=== PATIENT | female | born 1990 | race Caucasian/White ===

== ENCOUNTER 2016-03-28 20:17 | Observation (INO) ==
--- NOTE | 2016-04-03 15:48 | OB Labor Progress Note ---
Date of Encounter: 03/28/16 Time of Encounter: 21:10 Labor Progress Note - Plan Plan: Patient is a 25 y/o who came in to L and D with complaints of bleeding. SSE showed no blood in the vault, cervix was closed. FHT reactive, patient discharged.
== END 2016-03-28 21:20 | disposition home or self-care (01) ==
LOC: 1NENULAB
PROVIDERS: ADMIT Student in an Organized Health Care Education/Training Program; ATTEND Student in an Organized Health Care Education/Training Program

== ENCOUNTER 2016-04-15 08:00 | Inpatient (IN) ==
[2016-04-15] MEDS ORDERED: Metoclopramide 10 MG/2 ML VIAL IVP PRN (08:24)
[2016-04-15] MEDS ORDERED: Ondansetron 4 MG/2 ML VIAL IVP PRN (08:24)
[2016-04-15] MEDS ORDERED: Naloxone 0.4 MG/ML INJ IVP PRN (08:24)
[2016-04-15] MEDS ORDERED: Famotidine 20 MG/2 ML VIAL IVP PRN (08:24)
--- NOTE | 2016-04-15 09:42 | OB/GYN History & Physical ---
Date of Encounter: 04/15/16 Time of Encounter: 09:30 Assessment and Plan (1) and not yet delivered in third trimester Current visit: Yes Status: Acute (2) 39 weeks gestation of Current visit: Yes Status: Acute (3) Polycystic kidney disease of fetus affecting management of mother in [place] , antepartum Current visit: Yes Status: Acute (4) Hydronephrosis of fetus in [place] , antepartum Current visit: Yes Status: Acute (5) Elective induction of labor planned Current visit: Yes Status: Acute Will induce with Shrestha catheter and Pitocin and plan is to anticipate vaginal delivery History of Present Illness HPI: Ms. Mckee is a 25 year old female 3 para 1011 at 39-0/7 weeks who presented to labor and delivery for induction of labor secondary term with history of polycystic kidneys on the fetus with moderate hydronephrosis. Patient has been followed closely due to the kidney abnormality on the fetus and was advised when she got to term should be delivered. Patient did not have the most favorable cervix recommended we do a Shrestha catheter with Cytotec. Patient states she started katie in the middle of the night starting get more uncomfortable. Patient is katie every 3-5 minutes irregularly since Cytotec would not be a good option. Recommended Augmentiation with Pitocin. She denies any vaginal discharge itching or burning and is having no bladder issues at this time. She is wanting a tubal ligation she did sign tubal papers the risks and benefits of the tubal ligation was going to patient with failure rate of 5-8 per thousand with increased risk of ectopic if was to occur. Past Med Surg Social Fam HX - Past Medical History Source: patient, old records reviewed Medical history: migraine Psychiatric history: depression - Past Surgical History Surgical History: no surgical history - Social History Smoking Status: Former smoker Smokeless Tobacco Status: No Alcohol use: none Drug use: none Occupational status: employed Current living situation: Home - Independent Recent Out of Country Travel Within the Last 8 Weeks: No Exposure or Possible Exposure to Illness During Travel: No - Family History Father Adopted: No Living Status: Still Living Hx Family Cardiac Disorders: Yes (valve issue) Hx Family Respiratory Disorders: No Hx Family Cancer: No Hx Family GI Disorders: No Hx Family Endocrine Disorder: No Hx Family Neuromuscular Disorders: No Hx Family Neurologic Disorders: No Hx Family HEENT Disorders: No Hx Family Autoimmune Disorders: No Hx Family Medical Disorders: Yes (blood clots) Obstetrical History - Pregnancies : 3 Para: 1 Term: 0 : 1 Ab's: 1 Livin Medications and Allergies Pnv95/Ferrous Fumarate/FA [ Caplet] 1 tab PO DAILY 11/01/15 [History] Pyridoxine HCl [Vitamin B-6] 25 mg PO DAILY 11/01/15 [History] Famotidine [Pepcid] 1 tab PO PRN PRN 02/17/16 [History] Allergies hydrocodone [From Vicodin] Allergy (Verified 04/15/16 08:37) Hives Hydromorphone [From Dilaudid] Allergy (Verified 04/15/16 08:37) Hives nalbuphine [From Nubain] Allergy (Verified 04/15/16 08:37) Hives Oxycodone [From Percocet] Allergy (Verified 04/15/16 08:37) Hives Review of System OB All systems PM: reviewed and no additional remarkable complaints except as stated Exam - Constitutional Constitutional: well developed, well nourished, average body habitus, mild distress - HEENT HEENT: PERRL, Mucus Membranes Moist - Neck Neck exam: full ROM - Lungs Respiratory exam: CTAB - Cardiovascular Cardiovascular exam: RRR - Abdomen Abdomen: Present: bowel sounds normal, gravid - Vagina Vagina: Present: discharge - Cervix Dilation: 1 Effacement: 80 Station: -3 (Shrestha catheter inserted with 30 mL balloon inflated) - Comments Comments: heart tones 140s reactive contractions every 3-5 minutes Results All other labs normal. - VTE Reasons for not Prescribing Prophylaxis: Treatment not Indicated - Low risk for VTE
[2016-04-15] MEDS ORDERED: Oxytocin 20 units/ LR 1000 mL 20 UNIT/1,000 ML BAG IVC SCH (09:45)
[2016-04-15 09:46] LABS: Basophils # 0.1 K/mcL (0.0-0.2); Basophils % 0.3 %; Eosinophils # 0.2 K/mcL (0.0-0.6); Eosinophils % 1.3 %; Hematocrit 34.4 % (35.3-44.9); Hemoglobin 11.3 g/dL (11.5-15.4); Immature Granulocytes % 0.7 % (0-4); Lymphocytes # 2.7 K/mcL (0.6-4.6); Mean Corpuscular HGB Conc 32.8 g/dL (31.6-35.5); Mean Corpuscular Hemoglobin 26.5 pg (28.0-33.3); Mean Corpuscular Volume 80.6 fL (83.0-100.0); Monocytes # 1.5 K/mcL (0.0-1.3); Monocytes % 8.9 %; Neutrophils # 12.1 K/mcL (1.6-8.9); Platelet Count 342 K/mcL (140-400); Red Blood Count 4.27 M/mcL (3.82-4.97); Red Cell Distribution Width 14.3 % (11.5-14.5); Segmented Neutrophils % 72.8 %
[2016-04-15] MEDS: Ringers Solution, Lactated 1,000 ML IVC SCH ×2 (10:24→17:40)
[2016-04-15] MEDS: *HR* Meperidine 50 MG/ML SYRINGE IVP PRN ×2 (11:36→15:32)
[2016-04-15] MEDS ORDERED: Acetaminophen 325 MG TABLET PO PRN ×2 (16:05→19:27)
[2016-04-15] MEDS ORDERED: *HR* Promethazine 25 MG/ML VIAL IVP PRN (16:06)
--- NOTE | 2016-04-15 16:18 | OB Labor Progress Note ---
Date of Encounter: 04/15/16 Time of Encounter: 16:00 Labor Progress Note - Subjective Subjective: Shrestha catheter finally out patient is feeling contractions uncomfortable unable to get an epidural due to reaction she had 2 previous epidural is getting Demerol because allergic to Nubain. Did inform her with inability limited on pain management due to her reaction to narcotics and her situation with the epidural. - Cervix Cervix: 4/80/-2 AROM large amount of fluid noted clear - Heart Tones Heart Tones: heart tones 140s reactive - Demarest Demarest: Contractions every 2 minutes - Plan Plan: We will continue current care we will give her some promethazine for her nausea vomiting and we will have to use Demerol for pain control.
[2016-04-15] MEDS ORDERED: Lidocaine 1% 20 ML MDV ONE (18:44)
[2016-04-15] MEDS ORDERED: Famotidine 20 MG TABLET PO PRN (19:27)
[2016-04-15] MEDS ORDERED: Oxytocin 20 units/ LR 1000 mL 20 UNIT/1,000 ML BAG IVC ONE (19:27)
[2016-04-15] MEDS ORDERED: Measles/Mumps/Rubella Vacc 0.5 ML VIAL SQ PRN (19:27)
[2016-04-15] MEDS ORDERED: Oxytocin 20 units/ LR 1000 mL 20 UNIT/1,000 ML BAG IV SCH (19:30)
--- NOTE | 2016-04-15 19:31 | OB/GYN Procedure Note ---
Delivery - Delivery Date: 04/15/16 Provider: Damon Rosa Intrapartum events: none Delivery induction: AROM, oxytocin, thomas Delivery monitor: external FHT, external uterine Anesthesia: local - (s) A Delivery Date: 04/15/16 Infant Delivery Time: 18:37 Presentation: vertex Position: OA Route of delivery: Gender: Female Viability: Viable Pounds: 6 Ounces: 14 Weight Gram: 3.11 kg at 1 minute: 7 at 5 mins: 9 Shoulder Dystocia: not encountered Specimens collected: cord blood Placenta: spontaneous Cord: nuchal cord, 3 umbilical vessels, delivered through nuchal - Repair Episiotomy: none Laceration Description: Periurethral (bilateral), Labial (right) - Complications Delivery complications: none Delivery comments: Patient is a 25-year-old 2 para 0101 at 39-0/7 weeks who presented to labor and delivery for induction of labor section at term with history of polyhydramnios and poly-kidney disease with the fetus on the right side. The patient was advised by maternal medicine once the amniotic fluid index got close to 28 she need to be delivered patient ultrasound last week which was 27.5 and she was scheduled for induction. Patient reports to labor and delivery where she was already noted to be katie a Thomas catheter was placed and she was augmented with Pitocin. It did take approximately 4-5 hours before the Thomas finally came out at this point were able to artificially ruptured with large amounts of clear fluid. Patient progressed rapidly from this point. Patient could not get an epidural due to a potential reaction she had last time with 1 and she was unblocked. Within an hour patient went from 6 cm complete first one time delivering a viable female in occiput anterior presentation at 1837. There was a nuchal cord 1 around the body infant was delivered through this. Apgars were 7 at one minutes , 9 at 5 minutes, weighed 6 lbs. 14 oz. Placenta was then delivered spontaneously with three-vessel cord. Inspector Poising that Shelley, anesthesia local, estimated blood loss 200 mL. Patient had bilateral periurethral lacerations and a right labial laceration repaired with 4-0 Vicryl usual fashion. Cervix and vagina was visualized and intact. She will be observed throughout before being taken floor. Patient had originally sign tubal papers to have a tubal ligation if she was to have a section she will not follow through states has more get a vasectomy. - Disposition Mom disposition: stable in LDR [place] disposition: stable in LDR
[2016-04-15] MEDS: Ibuprofen 600 MG TABLET PO PRN (19:41)
[2016-04-16] MEDS: Ibuprofen 600 MG TABLET PO PRN ×3 (03:40→18:40)
[2016-04-16 04:55] LABS: Basophils % 0.2 %; Eosinophils # 0.1 K/mcL (0.0-0.6); Eosinophils % 0.3 %; Hematocrit 31.4 % (35.3-44.9); Immature Granulocytes % 0.7 % (0-4); Lymphocytes # 2.6 K/mcL (0.6-4.6); Lymphocytes % 11.1 %; Mean Corpuscular HGB Conc 31.8 g/dL (31.6-35.5); Mean Corpuscular Hemoglobin 26.1 pg (28.0-33.3); Mean Platelet Volume 9.4 fL (9.4-12.4); Monocytes # 2.3 K/mcL (0.0-1.3); Monocytes % 9.6 %; Neutrophils # 18.3 K/mcL (1.6-8.9); Platelet Count 324 K/mcL (140-400); Red Blood Count 3.83 M/mcL (3.82-4.97); Red Cell Distribution Width 14.2 % (11.5-14.5); Segmented Neutrophils % 78.1 %
--- NOTE | 2016-04-16 08:22 | Discharge Summary ---
Date of Encounter: 04/16/16 Time of Encounter: 08:20 - Discharge Diagnosis (1) 39 weeks gestation of Priority: Primary Status: Resolved (2) Elective induction of labor planned Priority: Secondary Status: Resolved - Discharge Medications Home Medications: Pnv95/Ferrous Fumarate/FA [ Caplet] 1 tab PO DAILY 11/01/15 [History] Pyridoxine HCl [Vitamin B-6] 25 mg PO DAILY 11/01/15 [History] Famotidine [Pepcid] 1 tab PO PRN PRN 02/17/16 [History] Allergies/Adverse Reactions: Allergies hydrocodone [From Vicodin] Allergy (Verified 04/15/16 08:37) Hives Hydromorphone [From Dilaudid] Allergy (Verified 04/15/16 08:37) Hives nalbuphine [From Nubain] Allergy (Verified 04/15/16 08:37) Hives Oxycodone [From Percocet] Allergy (Verified 04/15/16 08:37) Hives Data Procedures and tests throughout hospitalization: Laboratory Tests 04/15/16 04/16/16 09:10 03:55 WBC 16.7 H 23.4 H RBC 4.27 3.83 Hgb 11.3 L 10.0 L Hct 34.4 L 31.4 L MCV 80.6 L 82.0 L MCH 26.5 L 26.1 L MCHC 32.8 31.8 RDW 14.3 14.2 Plt Count 342 324 MPV 9.0 L 9.4 Immature Gran % 0.7 0.7 Seg Neutrophils % 72.8 78.1 Lymphocytes % 16.0 11.1 Monocytes % 8.9 9.6 Eosinophils % 1.3 0.3 Basophils % 0.3 0.2 Neutrophils # 12.1 H 18.3 H Lymphocytes # 2.7 2.6 Monocytes # 1.5 H 2.3 H Eosinophils # 0.2 0.1 Basophils # 0.1 0.0 Labs on day of discharge: Labs from last 24 hours 04/16/16 04/15/16 03:55 09:10 WBC 23.4 H 16.7 H RBC 3.83 4.27 Hgb 10.0 L 11.3 L Hct 31.4 L 34.4 L MCV 82.0 L 80.6 L MCH 26.1 L 26.5 L MCHC 31.8 32.8 RDW 14.2 14.3 Plt Count 324 342 MPV 9.4 9.0 L Immature Gran % 0.7 0.7 Seg Neutrophils % 78.1 72.8 Lymphocytes % 11.1 16.0 Monocytes % 9.6 8.9 Eosinophils % 0.3 1.3 Basophils % 0.2 0.3 Neutrophils # 18.3 H 12.1 H Lymphocytes # 2.6 2.7 Monocytes # 2.3 H 1.5 H Eosinophils # 0.1 0.2 Basophils # 0.0 0.1 Date of admission: 04/15/16 08:15 Primary care physician: Linda Joyner MD Consults: 04/15/16 19:27 Consult to [employer] Stri[employer] Operator [CONS] Routine Comment: Vaginal delivery, consult needed - Patient Status Disposition: Home, Self-Care Condition: Good Functional capacity at discharge: independent ambulation Overall status at discharge: patient is progressing back to baseline - Discharge Instructions Follow Up With: Linda Joyner MD [Primary Care Provider] - - Diet and Activity Activity: increase activity as tolerated Diet: advance to your usual diet Hospital Course Reason for admission: induction of labor Delivery: Episiotomy: none Laceration: other (bilateral periurethral) Other procedures: none complications: none Discharge diagnosis: IUP at term delivered [place] baby: female Time Attestation: Total time spent providing and/or coordinating discharge services: Time Spent: Less than 30 minutes Exam - Constitutional Vitals: Temp Pulse Resp BP Pulse Ox 98.5 F 91 16 105/65 97 04/16/16 08:11 04/16/16 08:11 04/16/16 08:11 04/16/16 08:11 04/16/16 03:30 General appearance IM: cooperative, A&O X 3, pleasant, no acute distress, answers questions appropriately - Respiratory Respiratory exam: Present: CTAB - Cardiovascular Cardiovascular exam IM: Present: RRR, +S1, +S2 - GI/Abdominal GI/Abdominal exam IM: normal bowel sounds, soft, no peritoneal signs - Rectal Rectal exam: deferred - Uterine Tone: Firm Uterus Position: 1 Finger Below Umbilicus - Extremities Exam Extremities exam IM: Present: normal inspection, warm. Absent: tenderness - Neurological Exam Neurological exam: alert, CN II-XII intact, oriented X3, no focal deficits - Attending Attestation Marty Noriega MD, FACOG
[2016-04-16] MEDS: *HR* HYDROcodone/Acet 5/325 mg TABLET PO PRN ×2 (08:26→17:08)
[2016-04-16] MEDS ORDERED: Prenatal Vit/FA 1 EACH TABLET PO SCH ×2 (09:00)
[2016-04-16] MEDS ORDERED: Pyridoxine (B-6) 50 MG TABLET PO SCH (09:00)
[2016-04-16 16:17] VITALS: BP 125/75
[2016-04-16] MEDS ORDERED: Lanolin 7 G OINT...G. TP PRN (17:11)
== END 2016-04-16 19:18 | disposition home or self-care (01) | DRG 560 ==
LOC: 1NENULAB 08:15 → 1NENUOBS 21:26
PROVIDERS: ADMIT Obstetrics & Gynecology; ATTEND Obstetrics & Gynecology

== ENCOUNTER → 2019-09-01 19:29 | Observation (INO) | END | disposition home or self-care (01) | LOC: 1NENULAB | PROVIDERS: ADMIT Obstetrics & Gynecology; ATTEND Obstetrics & Gynecology ==

== ENCOUNTER 2019-09-03 08:00 | Inpatient (IN) ==
[2019-09-03] MEDS ORDERED: Azithromycin 500 MG in 0.9 % Sodium Chloride 250 ML IVPB ONE (08:59)
[2019-09-03] MEDS ORDERED: Famotidine 20 MG/2 ML VIAL IVP PRN (08:59)
[2019-09-03] MEDS ORDERED: Naloxone 0.4 MG/ML INJ IVP PRN (08:59)
[2019-09-03] MEDS ORDERED: Ondansetron 4 MG/2 ML VIAL IVP PRN (08:59)
[2019-09-03] MEDS ORDERED: Metoclopramide 10 MG/2 ML VIAL IVP PRN (08:59)
[2019-09-03] MEDS ORDERED: Lidocaine 1% 20 ML MDV ID PRN (08:59)
[2019-09-03] MEDS ORDERED: Ringers Solution, Lactated 1,000 ML IVC SCH (09:00)
[2019-09-03 09:22] LABS: Basophils % 0.3 %; Eosinophils # 0.2 K/mcL (0.0-0.6); Eosinophils % 1.5 %; Hemoglobin 11.9 g/dL (11.5-15.4); Immature Granulocytes % 0.6 % (0-4); Lymphocytes # 1.9 K/mcL (0.6-4.6); Lymphocytes % 13.1 %; Mean Corpuscular HGB Conc 33.1 g/dL (31.6-35.5); Mean Corpuscular Hemoglobin 28.3 pg (28.0-33.3); Mean Corpuscular Volume 85.7 fL (83.0-100.0); Mean Platelet Volume 9.8 fL (9.4-12.4); Monocytes # 1.2 K/mcL (0.0-1.3); Neutrophils # 11.1 K/mcL (1.6-8.9); Platelet Count 319 K/mcL (140-400); Red Cell Distribution Width 14.4 % (11.5-14.5); Segmented Neutrophils % 76.5 %; White Blood Count 14.5 K/mcL (4.3-11.1)
[2019-09-03 09:29] LABS: Amphetamine Screen,Urine Negative ng/mL (Cutoff=1000); Barbiturate Screen,Urine Negative ng/mL (Cutoff=200); Benzodiazepines Screen,Urine Negative ng/mL (Cutoff=200); Cannabinoid Screen,Urine Negative ng/mL (Cutoff = 50); Cocaine Screen,Urine Negative ng/mL (Cutoff= 300); Opiate Screen,Urine Negative ng/mL (Cutoff=300); Phencyclidine Screen,Urine Negative ng/mL (Cutoff=25)
[2019-09-03] MEDS ORDERED: miSOPROStoL 25 MCG TABLET PO SCH (10:15)
[2019-09-03] MEDS: Acetaminophen 325 MG TABLET PO PRN ×2 (10:28→15:55)
[2019-09-03] MEDS ORDERED: D5% in 0.45% NACL 1,000 ML IVC SCH (13:15)
[2019-09-03] MEDS ORDERED: Oxytocin 20 units/ LR 1000 mL 20 UNIT/1,000 ML BAG IVC SCH ×2 (15:30→23:50)
[2019-09-03] MEDS ORDERED: Bupivacaine-MPF 0.25% 10 ML VIAL ONE (21:05)
[2019-09-03] MEDS ORDERED: Lanolin 7 G OINT...G. TP PRN (23:50)
[2019-09-04] MEDS: Acetaminophen 325 MG TABLET PO SCH ×3 (02:01→20:14)
[2019-09-04] MEDS: Ibuprofen 600 MG TABLET PO SCH ×3 (02:01→17:31)
[2019-09-04] MEDS: Prenatal Vit/FA 1 EACH TABLET PO SCH (08:19)
[2019-09-04 22:50] VITALS: BP 115/78
[2019-09-05] MEDS: Prenatal Vit/FA 1 EACH TABLET PO SCH (08:03)
== END 2019-09-05 10:18 | disposition home or self-care (01) | DRG 560 ==
LOC: 1NENULAB 08:03 → 1NENUOBS 23:50
PROVIDERS: ADMIT Obstetrics & Gynecology; ATTEND Obstetrics & Gynecology